=== PATIENT | male | born 1960 | race Caucasian/White ===

== ENCOUNTER 2019-04-22 04:25 | Inpatient (IN) | payer OTHER ==
[2019-04-22] MEDS ORDERED: DOCUSATE SODIUM 100 MG CAP PO (05:00)
[2019-04-22] MEDS ORDERED: NACL 0.9% 3 ML SYG IV (05:00)
[2019-04-22] MEDS ORDERED: HYDROCODONE/APAP (5/325) TAB PO (05:00)
[2019-04-22] MEDS ORDERED: VANCOMYCIN IV PER PHARMACY XX (05:00)
[2019-04-22] MEDS ORDERED: ONDANSETRON 4 MG INJ IV (05:00)
[2019-04-22] MEDS ORDERED: BISACODYL (EC) 5 MG TAB PO (05:00)
[2019-04-22] MEDS ORDERED: GLUCAGON 1 MG INJ IM (05:30)
[2019-04-22] MEDS ORDERED: DEXTROSE 50% 50 ML SYRINGE IV ×2 (05:30)
[2019-04-22] MEDS ORDERED: GLUCOSE GEL 15 GRAM TUBE BUCCAL (05:30)
[2019-04-22] MEDS ORDERED: GLUCOSE GEL 15 GRAM TUBE PO ×2 (05:30)
[2019-04-22] MEDS: SOD CHLORIDE 0.9% 1,000 ML IV ×2 (05:51→19:18)
[2019-04-22] MEDS: morphine 2 MG INJ IV ×2 (05:59→20:36)
[2019-04-22] MEDS ORDERED: PIPER-TAZO 3.375 GM IV (PMX) 100 ML IVPB (06:00)
[2019-04-22] MEDS: VANCOMYCIN 1.5 GM/NS 250 ML 250 ML IVPB (06:52)
[2019-04-22 07:49] LABS: ADD MAN DIFF? NO
[2019-04-22 07:53] LABS: BASOPHIL # 0.1 10^3/ul (0.0-0.1); BASOPHILS % 1.1 % (0.0-2.0); EOSINOPHILS # 0.2 10^3/ul (0.0-0.5); EOSINOPHILS % 3.5 % (0.0-7.0); HEMATOCRIT 39.4 % (42.0-52.0); HEMOGLOBIN 13.3 g/dl (14.0-18.0); LYMPHOCYTES # 1.1 10^3/ul (0.8-2.9); LYMPHOCYTES % 20.6 % (15.0-51.0); MEAN CORPUSCULAR HEMOGLOBIN 29.6 pg (29.0-33.0); MEAN CORPUSCULAR HGB CONC 33.8 g/dl (32.0-37.0); MEAN CORPUSCULAR VOLUME 87.8 fl (82.0-101.0); MEAN PLATELET VOLUME 11.5 fl (7.4-10.4); MONOCYTE # 0.4 10^3/ul (0.3-0.9); MONOCYTES % 6.9 % (0.0-11.0); NEUTROPHIL # 3.6 10^3/ul (1.6-7.5); NEUTROPHILS % 67.5 % (39.0-77.0); PLATELET COUNT 186 10^3/UL (140-415); RED BLOOD COUNT 4.49 10^6/ul (4.70-6.10); RED CELL DISTRIBUTION WIDTH 12.3 % (11.5-14.5)
[2019-04-22 07:53] LABS: WHITE BLOOD COUNT 5.4 10^3/ul (4.8-10.8)
[2019-04-22 08:12] LABS: INR 1.04; PROTIME 13.7 Sec (11.9-14.9); PT RATIO 1.1
[2019-04-22 08:13] LABS: PARTIAL THROMBOPLASTIN TIME 32.2 Sec (23.0-35.0)
[2019-04-22 08:18] LABS: CHOL/HDL RATIO 7.5 RATIO; CHOLESTEROL 181 mg/dl (100-200); HDL CHOLESTEROL 24 mg/dl (28-71); LDL CHOLESTEROL,CALCULATED 128 mg/dl; TRIGLYCERIDES 145 mg/dl (0-149)
[2019-04-22 08:18] LABS: MAGNESIUM 1.9 mg/dl (1.7-2.5)
[2019-04-22 08:20] LABS: ETHANOL < 10.0 mg/dl (0-0)
[2019-04-22 08:24] LABS: C-REACTIVE PROTEIN 1.7 mg/dl (0.0-0.9)
[2019-04-22 08:30] LABS: HEMOGLOBIN A1C 8.4 % (0-5.9)
[2019-04-22] MEDS: GABAPENTIN 300 MG CAP PO ×3 (08:53→20:35)
[2019-04-22] MEDS: INSULIN ASPART [NOVOLOG] 3 ML PEN SC ×3 (08:53→18:05)
[2019-04-22 08:55] LABS: ERYTHROCYTE SEDIMENTATION RATE 14 mm/Hr (0-20)
[2019-04-22 13:33] LABS: BLOOD UREA NITROGEN 24 mg/dl (7-20)
[2019-04-22] MEDS: LEVOFLOXACIN 750MG/D5W (PMX) 150 ML IVPB (13:36)
[2019-04-22] MEDS: ENOXAPARIN 80 MG/0.8 ML SYG SC ×2 (15:21→23:04)
[2019-04-22] MEDS ORDERED: INSULIN ASPART [NOVOLOG] 3 ML PEN SC (17:05)
[2019-04-22] MEDS: Insulin NOVOLOG SS MILD Algorithm (SS with meals and bedtime) SC ×2 (17:11→20:36)
[2019-04-22] MEDS: VANCOMYCIN 1 GM 250 ML IVPB (18:04)
[2019-04-22] MEDS: ATORVASTATIN 20 MG TAB PO (20:35)
[2019-04-22] MEDS: INSULIN GLARGINE [LANTus] (100 UNITS/ML) SYG SC (20:35)
[2019-04-22] MEDS ORDERED: NON-FORMULARY/PATIENT OWN MED (Simvastatin* (Zocor*) 40 MG) PO (21:00)
[2019-04-22] MEDS: traZODone 50 MG TAB PO (21:43)
[2019-04-23] MEDS: ACCUCHECK AT 2AM (Patients on SS coverage) XX (01:34)
[2019-04-23] MEDS ORDERED: ACCU-CHEK XX (02:00)
[2019-04-23] MEDS: SOD CHLORIDE 0.9% 1,000 ML IV ×2 (04:38→23:45)
[2019-04-23] MEDS: LEVOFLOXACIN 750MG/D5W (PMX) 150 ML IVPB (04:39)
[2019-04-23 04:45] LABS: AMPHETAMINE/METHAMPHETAMINE Negative (NEGATIVE); BARBITURATES Negative (NEGATIVE); BENZODIAZEPINES Negative (NEGATIVE); CANNABINOIDS Negative (NEGATIVE); COCAINE Negative (NEGATIVE)
[2019-04-23 04:49] LABS: OPIATES Positive (NEGATIVE)
[2019-04-23 04:53] LABS: ADD MAN DIFF? NO
[2019-04-23 04:58] LABS: WHITE BLOOD COUNT 7.1 10^3/ul (4.8-10.8)
[2019-04-23 04:58] LABS: BASOPHIL # 0.1 10^3/ul (0.0-0.1); EOSINOPHILS # 0.3 10^3/ul (0.0-0.5); EOSINOPHILS % 4.1 % (0.0-7.0); HEMATOCRIT 38.1 % (42.0-52.0); HEMOGLOBIN 12.8 g/dl (14.0-18.0); LYMPHOCYTES # 2.2 10^3/ul (0.8-2.9); LYMPHOCYTES % 31.2 % (15.0-51.0); MEAN CORPUSCULAR HEMOGLOBIN 29.8 pg (29.0-33.0); MEAN CORPUSCULAR HGB CONC 33.6 g/dl (32.0-37.0); MEAN CORPUSCULAR VOLUME 88.6 fl (82.0-101.0); MEAN PLATELET VOLUME 11.1 fl (7.4-10.4); MONOCYTE # 0.5 10^3/ul (0.3-0.9); MONOCYTES % 6.9 % (0.0-11.0); NEUTROPHILS % 56.2 % (39.0-77.0); PLATELET COUNT 199 10^3/UL (140-415); RED CELL DISTRIBUTION WIDTH 12.5 % (11.5-14.5)
[2019-04-23 05:48] LABS: PHOSPHORUS 3.5 mg/dl (2.5-4.9)
[2019-04-23 06:02] LABS: ANION GAP 7 (5-13); BLOOD UREA NITROGEN 21 mg/dl (7-20); CALCIUM 9.5 mg/dl (8.4-10.2); CARBON DIOXIDE 29 mmol/L (21-31); CHLORIDE 105 mmol/L (97-110); CREATININE 1.27 mg/dl (0.61-1.24); Estimated GFR 59 mL/min (>60); GLUCOSE 161 mg/dl (70-220); MAGNESIUM 1.9 mg/dl (1.7-2.5); POTASSIUM 4.9 mmol/L (3.5-5.1); SODIUM 141 mmol/L (135-144)
[2019-04-23] MEDS: VANCOMYCIN 1 GM 250 ML IVPB ×2 (06:18→18:25)
[2019-04-23 06:36] LABS: ERYTHROCYTE SEDIMENTATION RATE 9 mm/Hr (0-20)
[2019-04-23] MEDS: Insulin NOVOLOG SS MILD Algorithm (SS with meals and bedtime) SC ×4 (08:27→20:37)
[2019-04-23] MEDS: INSULIN ASPART [NOVOLOG] 3 ML PEN SC ×3 (08:28→16:58)
[2019-04-23] MEDS: ENOXAPARIN 80 MG/0.8 ML SYG SC ×2 (08:29→20:40)
[2019-04-23] MEDS: GABAPENTIN 300 MG CAP PO ×3 (08:29→20:40)
[2019-04-23] MEDS: ACETAMINOPHEN 325 MG TAB PO (20:05)
[2019-04-23] MEDS: INSULIN GLARGINE [LANTus] (100 UNITS/ML) SYG SC (20:39)
[2019-04-23] MEDS: ATORVASTATIN 20 MG TAB PO (20:40)
[2019-04-24] MEDS: ACCUCHECK AT 2AM (Patients on SS coverage) XX (01:59)
[2019-04-24 05:24] LABS: ADD MAN DIFF? NO
[2019-04-24] MEDS: LEVOFLOXACIN 750MG/D5W (PMX) 150 ML IVPB (05:46)
[2019-04-24] MEDS ORDERED: VANCOMYCIN 750 MG (PMX) 250 ML IVPB (06:00)
[2019-04-24 06:03] LABS: BASOPHIL # 0.1 10^3/ul (0.0-0.1); BASOPHILS % 0.9 % (0.0-2.0); EOSINOPHILS # 0.3 10^3/ul (0.0-0.5); EOSINOPHILS % 4.5 % (0.0-7.0); HEMATOCRIT 38.2 % (42.0-52.0); LYMPHOCYTES # 1.9 10^3/ul (0.8-2.9); LYMPHOCYTES % 33.7 % (15.0-51.0); MEAN CORPUSCULAR HEMOGLOBIN 30.2 pg (29.0-33.0); MEAN CORPUSCULAR VOLUME 88.6 fl (82.0-101.0); MEAN PLATELET VOLUME 11.8 fl (7.4-10.4); MONOCYTE # 0.4 10^3/ul (0.3-0.9); MONOCYTES % 7.2 % (0.0-11.0); PLATELET COUNT 201 10^3/UL (140-415); RED BLOOD COUNT 4.31 10^6/ul (4.70-6.10); RED CELL DISTRIBUTION WIDTH 12.3 % (11.5-14.5)
[2019-04-24 06:03] LABS: WHITE BLOOD COUNT 5.7 10^3/ul (4.8-10.8)
[2019-04-24 06:12] LABS: PHOSPHORUS 3.6 mg/dl (2.5-4.9)
[2019-04-24 06:22] LABS: ANION GAP 7 (5-13); BLOOD UREA NITROGEN 20 mg/dl (7-20); CALCIUM 9.3 mg/dl (8.4-10.2); CARBON DIOXIDE 28 mmol/L (21-31); CHLORIDE 104 mmol/L (97-110); Estimated GFR 52 mL/min (>60); GLUCOSE 210 mg/dl (70-220); POTASSIUM 4.2 mmol/L (3.5-5.1); SODIUM 139 mmol/L (135-144)
[2019-04-24] MEDS: VANCOMYCIN 750 MG (PMX) 250 ML IVPB (07:24)
[2019-04-24] MEDS: GABAPENTIN 300 MG CAP PO ×3 (08:19→20:43)
[2019-04-24] MEDS: ASPIRIN (EC) 81 MG TAB PO (08:19)
[2019-04-24] MEDS: ENOXAPARIN 80 MG/0.8 ML SYG SC ×2 (08:20→20:45)
[2019-04-24] MEDS: Insulin NOVOLOG SS MILD Algorithm (SS with meals and bedtime) SC ×4 (08:21→20:41)
[2019-04-24] MEDS: INSULIN ASPART [NOVOLOG] 3 ML PEN SC ×3 (08:22→17:16)
[2019-04-24] MEDS: SOD CHLORIDE 0.9% 1,000 ML IV (14:03)
[2019-04-24] MEDS: INSULIN GLARGINE [LANTus] (100 UNITS/ML) SYG SC (20:42)
[2019-04-24] MEDS: ATORVASTATIN 20 MG TAB PO (20:43)
[2019-04-24] MEDS: ACETAMINOPHEN 325 MG TAB PO (20:44)
[2019-04-24] MEDS: CLINDAMYCIN 600 MG/D5W (PMX) 50 ML IVPB (21:24)
[2019-04-24] MEDS: DEXTROSE 5%-0.45% NACL 1,000 ML IV (23:10)
[2019-04-25] MEDS: ACCUCHECK AT 2AM (Patients on SS coverage) XX ×2 (01:08→22:48)
[2019-04-25] MEDS: INSULIN ASPART [NOVOLOG] 3 ML PEN SC ×5 (01:10→17:12)
[2019-04-25] MEDS: LEVOFLOXACIN 750MG/D5W (PMX) 150 ML IVPB (04:34)
[2019-04-25 05:58] LABS: ADD MAN DIFF? NO
[2019-04-25 06:14] LABS: BASOPHIL # 0.1 10^3/ul (0.0-0.1); BASOPHILS % 1.1 % (0.0-2.0); EOSINOPHILS # 0.2 10^3/ul (0.0-0.5); EOSINOPHILS % 3.9 % (0.0-7.0); HEMATOCRIT 38.8 % (42.0-52.0); LYMPHOCYTES # 1.7 10^3/ul (0.8-2.9); LYMPHOCYTES % 30.6 % (15.0-51.0); MEAN CORPUSCULAR HEMOGLOBIN 29.5 pg (29.0-33.0); MEAN CORPUSCULAR HGB CONC 33.5 g/dl (32.0-37.0); MEAN CORPUSCULAR VOLUME 88.2 fl (82.0-101.0); MEAN PLATELET VOLUME 11.6 fl (7.4-10.4); MONOCYTE # 0.4 10^3/ul (0.3-0.9); MONOCYTES % 7.1 % (0.0-11.0); NEUTROPHIL # 3.2 10^3/ul (1.6-7.5); NEUTROPHILS % 56.9 % (39.0-77.0); PLATELET COUNT 199 10^3/UL (140-415); RED CELL DISTRIBUTION WIDTH 12.6 % (11.5-14.5)
[2019-04-25 06:14] LABS: WHITE BLOOD COUNT 5.7 10^3/ul (4.8-10.8)
[2019-04-25] MEDS: CLINDAMYCIN 600 MG/D5W (PMX) 50 ML IVPB ×3 (06:16→21:10)
[2019-04-25 07:28] LABS: ANION GAP 9 (5-13); BLOOD UREA NITROGEN 19 mg/dl (7-20); CALCIUM 9.4 mg/dl (8.4-10.2); CARBON DIOXIDE 29 mmol/L (21-31); CHLORIDE 104 mmol/L (97-110); CREATININE 1.36 mg/dl (0.61-1.24); Estimated GFR 54 mL/min (>60); GLUCOSE 164 mg/dl (70-220); POTASSIUM 4.2 mmol/L (3.5-5.1); SODIUM 142 mmol/L (135-144)
[2019-04-25] MEDS: ENOXAPARIN 80 MG/0.8 ML SYG SC ×2 (08:50→20:33)
[2019-04-25] MEDS: GABAPENTIN 300 MG CAP PO ×3 (08:50→20:32)
[2019-04-25] MEDS: ASPIRIN (EC) 81 MG TAB PO (08:50)
[2019-04-25] MEDS: ACETAMINOPHEN 1000MG/100ML IV 100 ML IVPB (09:00)
[2019-04-25] MEDS ORDERED: INSULIN ASPART [NOVOLOG] 3 ML PEN SC (11:15)
[2019-04-25] MEDS: ACETAMINOPHEN 325 MG TAB PO (11:27)
[2019-04-25] MEDS: Insulin NOVOLOG SS MILD Algorithm (SS with meals and bedtime) SC ×3 (12:48→20:29)
[2019-04-25] MEDS: DEXTROSE 5%-0.45% NACL 1,000 ML IV (12:49)
[2019-04-25] MEDS: ATORVASTATIN 20 MG TAB PO (20:32)
[2019-04-25] MEDS: INSULIN GLARGINE [LANTus] (100 UNITS/ML) SYG SC (20:34)
[2019-04-26] MEDS: LEVOFLOXACIN 750MG/D5W (PMX) 150 ML IVPB (04:33)
[2019-04-26] MEDS: DEXTROSE 5%-0.45% NACL 1,000 ML IV ×2 (04:33→14:58)
[2019-04-26 05:41] LABS: ADD MAN DIFF? NO
[2019-04-26 05:49] LABS: WHITE BLOOD COUNT 7.6 10^3/ul (4.8-10.8)
[2019-04-26 05:49] LABS: BASOPHIL # 0.1 10^3/ul (0.0-0.1); BASOPHILS % 0.7 % (0.0-2.0); EOSINOPHILS # 0.2 10^3/ul (0.0-0.5); EOSINOPHILS % 2.5 % (0.0-7.0); HEMATOCRIT 41.1 % (42.0-52.0); HEMOGLOBIN 13.8 g/dl (14.0-18.0); LYMPHOCYTES # 1.7 10^3/ul (0.8-2.9); MEAN CORPUSCULAR HEMOGLOBIN 29.4 pg (29.0-33.0); MEAN CORPUSCULAR HGB CONC 33.6 g/dl (32.0-37.0); MEAN CORPUSCULAR VOLUME 87.4 fl (82.0-101.0); MEAN PLATELET VOLUME 11.5 fl (7.4-10.4); MONOCYTE # 0.5 10^3/ul (0.3-0.9); MONOCYTES % 6.7 % (0.0-11.0); NEUTROPHIL # 5.1 10^3/ul (1.6-7.5); NEUTROPHILS % 67.6 % (39.0-77.0); PLATELET COUNT 196 10^3/UL (140-415); RED CELL DISTRIBUTION WIDTH 12.5 % (11.5-14.5)
[2019-04-26] MEDS: CLINDAMYCIN 600 MG/D5W (PMX) 50 ML IVPB ×3 (06:07→21:08)
[2019-04-26 06:10] LABS: ANION GAP 7 (5-13); BLOOD UREA NITROGEN 19 mg/dl (7-20); CALCIUM 9.7 mg/dl (8.4-10.2); CARBON DIOXIDE 28 mmol/L (21-31); CHLORIDE 104 mmol/L (97-110); Estimated GFR 52 mL/min (>60); GLUCOSE 195 mg/dl (70-220); POTASSIUM 4.1 mmol/L (3.5-5.1); SODIUM 139 mmol/L (135-144)
[2019-04-26] MEDS: GABAPENTIN 300 MG CAP PO ×3 (07:56→20:18)
[2019-04-26] MEDS: ASPIRIN (EC) 81 MG TAB PO (07:56)
[2019-04-26] MEDS: INSULIN ASPART [NOVOLOG] 3 ML PEN SC ×3 (07:58→17:21)
[2019-04-26] MEDS: Insulin NOVOLOG SS MILD Algorithm (SS with meals and bedtime) SC ×4 (07:58→20:19)
[2019-04-26] MEDS: ENOXAPARIN 80 MG/0.8 ML SYG SC ×2 (07:58→21:07)
[2019-04-26] MEDS: ACETAMINOPHEN 325 MG TAB PO (20:18)
[2019-04-26] MEDS: ATORVASTATIN 20 MG TAB PO (20:18)
[2019-04-26] MEDS: INSULIN GLARGINE [LANTus] (100 UNITS/ML) SYG SC (20:20)
[2019-04-26] MEDS ORDERED: APIXABAN 5 MG TABLET PO (21:00)
[2019-04-26] MEDS: ACCUCHECK AT 2AM (Patients on SS coverage) XX (21:12)
[2019-04-27] MEDS: DEXTROSE 5%-0.45% NACL 1,000 ML IV (02:01)
[2019-04-27] MEDS: LEVOFLOXACIN 750MG/D5W (PMX) 150 ML IVPB (05:12)
[2019-04-27 06:11] LABS: ANION GAP 4 (5-13); BLOOD UREA NITROGEN 18 mg/dl (7-20); CALCIUM 9.6 mg/dl (8.4-10.2); CARBON DIOXIDE 29 mmol/L (21-31); CHLORIDE 106 mmol/L (97-110); CREATININE 1.24 mg/dl (0.61-1.24); Estimated GFR > 60 mL/min (>60); GLUCOSE 182 mg/dl (70-220); POTASSIUM 4.2 mmol/L (3.5-5.1); SODIUM 139 mmol/L (135-144)
[2019-04-27] MEDS: CLINDAMYCIN 600 MG/D5W (PMX) 50 ML IVPB ×2 (06:48→14:00)
[2019-04-27] MEDS: ASPIRIN (EC) 81 MG TAB PO (08:04)
[2019-04-27] MEDS: GABAPENTIN 300 MG CAP PO ×2 (08:04→12:03)
[2019-04-27] MEDS: Insulin NOVOLOG SS MILD Algorithm (SS with meals and bedtime) SC ×2 (08:05→12:05)
[2019-04-27] MEDS: ENOXAPARIN 80 MG/0.8 ML SYG SC (08:05)
[2019-04-27] MEDS: INSULIN ASPART [NOVOLOG] 3 ML PEN SC ×2 (08:05→12:06)
[2019-04-27] MEDS: ACETAMINOPHEN 325 MG TAB PO (12:07)
== END 2019-04-27 16:00 | disposition home or self-care (01) | DRG 300 ==
LOC: 2NE 04:25 → MS3 05:38
PROVIDERS: Family Medicine
DX: E11.52 Type 2 diabetes mellitus with diabetic peripheral angiopathy with gangrene (principal); I96 Gangrene, not elsewhere classified; M86.171 Other acute osteomyelitis, right ankle and foot; E11.69 Type 2 diabetes mellitus with other specified complication; E11.65 Type 2 diabetes mellitus with hyperglycemia; E11.621 Type 2 diabetes mellitus with foot ulcer; L97.519 Non-pressure chronic ulcer of other part of right foot with unspecified severity; E11.42 Type 2 diabetes mellitus with diabetic polyneuropathy; I10 Essential (primary) hypertension; Z59.0 Homelessness; G47.00 Insomnia, unspecified; Z86.718 Personal history of other venous thrombosis and embolism; Z79.02 Long term (current) use of antithrombotics/antiplatelets; Z79.4 Long term (current) use of insulin; E78.5 Hyperlipidemia, unspecified; I82.431 Acute embolism and thrombosis of right popliteal vein
CPT/HCPCS: 71045; 73718; 80048; 80061; 80202; 80307; 82565; 82962; 83036; 83735; 84100; 84443; 84520; 85025; 85610; 85651; 85730; 86140; 87081; 93005; 93922; 93970